=== PATIENT | female | born 1970 | race Hispanic/Latino ===

== ENCOUNTER 2021-04-21 15:51 | Outpatient (RCR) | payer BC ==
[~2021-04-21 15:51] MED LIST: CIPRO500 MG PO; CRESTOR5 MG PO; GLIPIZIDE10 MG PO; METFORMIN HCL500 MG PO; METRONIDAZOLE500 MG PO; NOVOLIN 70100 UNITS/; URIBEL CAPSULE1 EACH PO
== END 2021-05-06 ==
LOC: PT 15:51
PROVIDERS: ATTEND Specialist
DX: M75.82 Other shoulder lesions, left shoulder (principal)

== ENCOUNTER 2021-05-25 16:59 | Outpatient (RCR) | payer BC | END 2021-06-06 | LOC: PT 16:59 | PROVIDERS: ATTEND Specialist | DX: M75.82 Other shoulder lesions, left shoulder (principal) | CPT/HCPCS: 97139 ==